=== PATIENT | female | born 1950 | race Caucasian/White ===

== ENCOUNTER 2017-07-16 09:07 | Inpatient (IN) | payer OTHER, MEDICARE ==
[2017-07-16 09:53] LABS: ADD MAN DIFF? NO
[2017-07-16] MEDS ORDERED: ONDANSETRON 4 MG INJ IV ×2 (10:00→13:30)
[2017-07-16] MEDS ORDERED: ACETAMINOPHEN 325 MG TAB PO ×2 (10:00→13:30)
[2017-07-16 10:03] LABS: BASOPHILS % 0.3 % (0.0-2.0); EOSINOPHILS # 0.3 10^3/ul (0.0-0.5); EOSINOPHILS % 3.9 % (0.0-7.0); HEMATOCRIT 34.2 % (37.0-47.0); HEMOGLOBIN 11.1 g/dl (12.0-16.0); LYMPHOCYTES # 0.8 10^3/ul (0.8-2.9); LYMPHOCYTES % 11.8 % (15.0-51.0); MEAN CORPUSCULAR HEMOGLOBIN 28.2 pg (29.0-33.0); MEAN CORPUSCULAR HGB CONC 32.5 g/dl (32.0-37.0); MEAN CORPUSCULAR VOLUME 86.8 fl (82.0-101.0); MEAN PLATELET VOLUME 12.1 fl (7.4-10.4); MONOCYTE # 0.5 10^3/ul (0.3-0.9); MONOCYTES % 8.2 % (0.0-11.0); NEUTROPHILS % 75.2 % (39.0-77.0); PLATELET COUNT 163 10^3/UL (140-415); RED BLOOD COUNT 3.94 10^6/ul (4.20-5.40); RED CELL DISTRIBUTION WIDTH 12.7 % (11.5-14.5)
[2017-07-16 10:03] LABS: WHITE BLOOD COUNT 6.6 10^3/ul (4.8-10.8)
[2017-07-16 10:19] LABS: ANION GAP 18 (8-16); BLOOD UREA NITROGEN 45 mg/dl (7-20); CALCIUM 7.7 mg/dl (8.4-10.2); CARBON DIOXIDE 26 mmol/L (21-31); CHLORIDE 96 mmol/L (97-110); CREATININE 5.66 mg/dl (0.44-1.00); GLUCOSE 179 mg/dl (70-220); POTASSIUM 3.7 mmol/L (3.5-5.1); SODIUM 136 mmol/L (135-144)
[2017-07-16] MEDS: ONDANSETRON 4 MG INJ IV (10:20)
[2017-07-16] MEDS: morphine 4 MG/ML VIAL IV (10:20)
[2017-07-16 10:24] LABS: INR 0.89; PROTIME 12.1 Sec (11.9-14.9); PT RATIO 0.9
[2017-07-16 10:25] LABS: PARTIAL THROMBOPLASTIN TIME 43.4 Sec (25.0-35.0)
[2017-07-16 10:36] LABS: TROPONIN-I < 0.012 ng/ml (0.00-0.12)
[2017-07-16] MEDS: HYDROmorphONE 1 MG/ML SYG IV (12:18)
[2017-07-16] MEDS: FAMOTIDINE 20 MG TAB PO (14:00)
[2017-07-16] MEDS: morphine 2 MG INJ IV (15:49)
[2017-07-16] MEDS: CALCIUM ACETATE 667 MG CAP PO (17:35)
[2017-07-16] MEDS ORDERED: DEXTROSE 50% 50 ML SYRINGE IV ×2 (20:30)
[2017-07-16] MEDS ORDERED: GLUCOSE GEL 15 GRAM TUBE PO ×2 (20:30)
[2017-07-16] MEDS ORDERED: GLUCOSE GEL 15 GRAM TUBE BUCCAL (20:30)
[2017-07-16] MEDS ORDERED: GLUCAGON 1 MG INJ IM (20:30)
[2017-07-16] MEDS: DEXTROSE 5%-0.45% NACL 1,000 ML IV (20:43)
[2017-07-16] MEDS: HEPARIN 5,000 UNIT/0.5 ML VIAL SC (20:52)
[2017-07-16] MEDS: ATORVASTATIN 20 MG TAB PO (21:00)
[2017-07-16] MEDS: INSULIN ASPART [NOVOLOG] 3 ML PEN SC (21:00)
[2017-07-17] MEDS: INSULIN ASPART [NOVOLOG] 3 ML PEN SC ×5 (01:15→17:00)
[2017-07-17] MEDS: LEVOTHYROXINE 100 MCG TAB PO (06:48)
[2017-07-17 07:14] LABS: ADD MAN DIFF? NO
[2017-07-17 07:22] LABS: WHITE BLOOD COUNT 6.2 10^3/ul (4.8-10.8)
[2017-07-17 07:22] LABS: BASOPHILS % 0.6 % (0.0-2.0); EOSINOPHILS # 0.4 10^3/ul (0.0-0.5); EOSINOPHILS % 6.3 % (0.0-7.0); HEMATOCRIT 32.8 % (37.0-47.0); HEMOGLOBIN 10.4 g/dl (12.0-16.0); LYMPHOCYTES # 1.3 10^3/ul (0.8-2.9); LYMPHOCYTES % 20.8 % (15.0-51.0); MEAN CORPUSCULAR HEMOGLOBIN 27.7 pg (29.0-33.0); MEAN CORPUSCULAR HGB CONC 31.7 g/dl (32.0-37.0); MEAN CORPUSCULAR VOLUME 87.2 fl (82.0-101.0); MEAN PLATELET VOLUME 11.7 fl (7.4-10.4); MONOCYTE # 0.8 10^3/ul (0.3-0.9); MONOCYTES % 12.7 % (0.0-11.0); NEUTROPHIL # 3.7 10^3/ul (1.6-7.5); NEUTROPHILS % 59.4 % (39.0-77.0); PLATELET COUNT 179 10^3/UL (140-415); RED BLOOD COUNT 3.76 10^6/ul (4.20-5.40); RED CELL DISTRIBUTION WIDTH 12.8 % (11.5-14.5)
[2017-07-17] MEDS: CALCIUM ACETATE 667 MG CAP PO ×3 (07:35→17:35)
[2017-07-17 07:49] LABS: ALANINE AMINOTRANSFERASE 30 IU/L (13-69); ALBUMIN 3.1 g/dl (3.3-4.9); ALBUMIN/GLOBULIN RATIO 0.96; ALKALINE PHOSPHATASE 111 IU/L (42-121); ANION GAP 21 (8-16); ASPARTATE AMINO TRANSFERASE 25 IU/L (15-46); BLOOD UREA NITROGEN 64 mg/dl (7-20); CALCIUM 7.5 mg/dl (8.4-10.2); CARBON DIOXIDE 22 mmol/L (21-31); CHLORIDE 98 mmol/L (97-110); CREATININE 7.39 mg/dl (0.44-1.00); GLUCOSE 84 mg/dl (70-220); MAGNESIUM 1.9 mg/dl (1.7-2.5); POTASSIUM 4.1 mmol/L (3.5-5.1); SODIUM 137 mmol/L (135-144); TOTAL PROTEIN 6.3 g/dl (6.1-8.1)
[2017-07-17] MEDS: HEPARIN 5,000 UNIT/0.5 ML VIAL SC ×2 (08:38→21:05)
[2017-07-17] MEDS: FAMOTIDINE 20 MG TAB PO (08:39)
[2017-07-17] MEDS: ASPIRIN 81 MG TAB PO (08:39)
[2017-07-17] MEDS: INFLUENZA VIRUS VACCINE 0.5 ML SYG IM* (09:00)
[2017-07-17] MEDS ORDERED: FENTAnyl 50 MCG/ML VIAL (15:32)
[2017-07-17] MEDS ORDERED: LIDOCAINE 1% (MDV) 20 ML INJ ×2 (15:37→15:56)
[2017-07-17] MEDS ORDERED: IODIXANOL LOCM 50 ML BTL ×2 (15:37→15:49)
[2017-07-17] MEDS ORDERED: HEPARIN 1000 UNITS/ML 10 ML INJ (15:37)
[2017-07-17] MEDS ORDERED: HEPARIN 1000 UNITS/NS (A-LINE) 1,000 ML (15:37)
[2017-07-17] MEDS: HYDROCODONE/APAP (5/325) TAB PO (19:39)
[2017-07-17] MEDS: Insulin NOVOLOG SS MILD Algorithm (SS with meals and bedtime) SC (21:00)
[2017-07-17] MEDS ORDERED: INSULIN ASPART [NOVOLOG] 3 ML PEN SC (21:00)
[2017-07-17] MEDS: ATORVASTATIN 20 MG TAB PO (21:04)
[2017-07-18] MEDS ORDERED: ALBUMIN HUMAN 25% 50 ML IV (04:00)
[2017-07-18] MEDS: ALBUMIN HUMAN 25% 100 ML IV (05:21)
[2017-07-18] MEDS: morphine 2 MG INJ IV (06:22)
[2017-07-18] MEDS: LEVOTHYROXINE 100 MCG TAB PO (06:24)
[2017-07-18] MEDS: HEPARIN 1000 UNITS/ML 10 ML INJ CATHETER (06:26)
[2017-07-18] MEDS: Insulin NOVOLOG SS MILD Algorithm (SS with meals and bedtime) SC ×4 (07:30→20:23)
[2017-07-18 07:42] LABS: HEPATITIS B SURFACE ANTIGEN NEGATIVE (NEGATIVE)
[2017-07-18] MEDS: ASPIRIN 81 MG TAB PO (08:09)
[2017-07-18] MEDS: CALCIUM ACETATE 667 MG CAP PO ×3 (08:09→17:38)
[2017-07-18] MEDS: FAMOTIDINE 20 MG TAB PO (08:09)
[2017-07-18] MEDS: HEPARIN 5,000 UNIT/0.5 ML VIAL SC ×2 (08:10→20:20)
[2017-07-18] MEDS: HYDROCODONE/APAP (5/325) TAB PO (08:18)
[2017-07-18] MEDS: DOCUSATE SODIUM 100 MG CAP PO (16:32)
[2017-07-18] MEDS: VERAPAMIL (SR) 120 MG TAB PO (16:33)
[2017-07-18 17:39] LABS: FREE T4 (FREE THYROXINE) 1.09 ng/dl (0.78-2.44)
[2017-07-18] MEDS: ATORVASTATIN 20 MG TAB PO (20:17)
[2017-07-19] MEDS: HYDROCODONE/APAP (5/325) TAB PO (02:53)
[2017-07-20] MEDS ORDERED: INFLUENZA VIRUS VACCINE 0.5 ML SYG IM* (19:00)
== END 2017-07-19 06:30 | disposition left against medical advice (07) | DRG 252 ==
LOC: E/R 09:07 → PP2 10:02
PROC: [UNRECOGNIZED PROCEDURE] (principal; 2017-07-17 14:50)
PROC: 02HV33Z Insertion of Infusion Device into Superior Vena Cava, Percutaneous Approach (ICD-10-PCS; 2017-07-17 14:50)
PROC: B548ZZA Ultrasonography of Superior Vena Cava, Guidance (ICD-10-PCS; 2017-07-17 14:50)
PROC: 0JH63XZ Insertion of Tunneled Vascular Access Device into Chest Subcutaneous Tissue and Fascia, Percutaneous Approach (ICD-10-PCS; 2017-07-17 14:50)
PROC: 5A1D70Z Performance of Urinary Filtration, Intermittent, Less than 6 Hours Per Day (ICD-10-PCS; 2017-07-17 14:50)
DX: T82.41XA Breakdown (mechanical) of vascular dialysis catheter, initial encounter (principal); N18.6 End stage renal disease; E11.22 Type 2 diabetes mellitus with diabetic chronic kidney disease; I12.0 Hypertensive chronic kidney disease with stage 5 chronic kidney disease or end stage renal disease; I87.1 Compression of vein; S42.211A Unspecified displaced fracture of surgical neck of right humerus, initial encounter for closed fracture; S42.251A Displaced fracture of greater tuberosity of right humerus, initial encounter for closed fracture; Y71.8 Miscellaneous cardiovascular devices associated with adverse incidents, not elsewhere classified; E87.79 Other fluid overload; E03.9 Hypothyroidism, unspecified; W19.XXXA Unspecified fall, initial encounter; Y92.009 Unspecified place in unspecified non-institutional (private) residence as the place of occurrence of the external cause; I70.208 Unspecified atherosclerosis of native arteries of extremities, other extremity; E11.51 Type 2 diabetes mellitus with diabetic peripheral angiopathy without gangrene; R94.31 Abnormal electrocardiogram [ECG] [EKG]; D64.9 Anemia, unspecified
CPT/HCPCS: 36907; 37248; 37249; 71045; 73030-RT; 73060-RT; 73070; 73200; 80048; 80053; 82962; 83735; 84439; 84443; 84484; 85025; 85610; 85730; 87340; 90935; 93005; 93306; 93923; 93970; 96374; 96375; 96376; 99217; 99285-25; G0378

== ENCOUNTER 2017-08-31 19:05 | Emergency (ER) | payer OTHER ==
[2017-08-31] MEDS: ONDANSETRON 4 MG INJ IV (22:46)
[2017-08-31] MEDS: HYDROmorphONE 0.5 MG/0.5 ML SYG IV (22:47)
[2017-08-31] MEDS: SOD CHLORIDE 0.9% 1,000 ML IV (22:48)
[2017-08-31 23:16] LABS: ADD MAN DIFF? NO
[2017-08-31 23:22] LABS: BASOPHILS % 0.4 % (0.0-2.0); EOSINOPHILS # 0.3 10^3/ul (0.0-0.5); EOSINOPHILS % 4.1 % (0.0-7.0); HEMATOCRIT 35.3 % (37.0-47.0); HEMOGLOBIN 11.4 g/dl (12.0-16.0); LYMPHOCYTES # 1.3 10^3/ul (0.8-2.9); LYMPHOCYTES % 17.9 % (15.0-51.0); MEAN CORPUSCULAR HEMOGLOBIN 28.3 pg (29.0-33.0); MEAN CORPUSCULAR HGB CONC 32.3 g/dl (32.0-37.0); MEAN CORPUSCULAR VOLUME 87.6 fl (82.0-101.0); MEAN PLATELET VOLUME 9.6 fl (7.4-10.4); MONOCYTE # 0.4 10^3/ul (0.3-0.9); MONOCYTES % 4.9 % (0.0-11.0); NEUTROPHIL # 5.4 10^3/ul (1.6-7.5); NEUTROPHILS % 72.3 % (39.0-77.0); PLATELET COUNT 267 10^3/UL (140-415); RED BLOOD COUNT 4.03 10^6/ul (4.20-5.40)
[2017-08-31 23:22] LABS: WHITE BLOOD COUNT 7.5 10^3/ul (4.8-10.8)
[2017-08-31 23:41] LABS: ALANINE AMINOTRANSFERASE 27 IU/L (13-69); ALBUMIN 3.5 g/dl (3.3-4.9); ALBUMIN/GLOBULIN RATIO 1.02; ALKALINE PHOSPHATASE 162 IU/L (42-121); ANION GAP 17 (8-16); ASPARTATE AMINO TRANSFERASE 22 IU/L (15-46); BILIRUBIN,INDIRECT 0.2 mg/dl (0-1.1); BILIRUBIN,TOTAL 0.2 mg/dl (0.2-1.3); BLOOD UREA NITROGEN 30 mg/dl (7-20); CALCIUM 8.9 mg/dl (8.4-10.2); CARBON DIOXIDE 25 mmol/L (21-31); CHLORIDE 92 mmol/L (97-110); CREATININE 5.31 mg/dl (0.44-1.00); GLUCOSE 96 mg/dl (70-220); LIPASE 54 U/L (23-300); POTASSIUM 3.9 mmol/L (3.5-5.1); SODIUM 130 mmol/L (135-144); TOTAL PROTEIN 6.9 g/dl (6.1-8.1)
== END 2017-09-01 02:19 | disposition home or self-care (01) ==
LOC: E/R 09-01 02:19
DX: K80.20 Calculus of gallbladder without cholecystitis without obstruction (principal); I10 Essential (primary) hypertension; E11.9 Type 2 diabetes mellitus without complications; Z79.82 Long term (current) use of aspirin
CPT/HCPCS: 36415; 76705; 80053; 83690; 85025; 96374; 96375; 99285-25

== ENCOUNTER 2018-12-04 04:35 | Inpatient (IN) | payer OTHER ==
[2018-12-04 04:50] LABS: ADD MAN DIFF? NO
[2018-12-04 04:55] LABS: WHITE BLOOD COUNT 5.6 10^3/ul (4.8-10.8)
[2018-12-04 04:55] LABS: BASOPHILS % 0.5 % (0.0-2.0); EOSINOPHILS # 0.3 10^3/ul (0.0-0.5); EOSINOPHILS % 4.5 % (0.0-7.0); HEMATOCRIT 36.6 % (37.0-47.0); HEMOGLOBIN 12.2 g/dl (12.0-16.0); LYMPHOCYTES # 1.2 10^3/ul (0.8-2.9); LYMPHOCYTES % 21.4 % (15.0-51.0); MEAN CORPUSCULAR HEMOGLOBIN 30.5 pg (29.0-33.0); MEAN CORPUSCULAR HGB CONC 33.3 g/dl (32.0-37.0); MEAN CORPUSCULAR VOLUME 91.5 fl (82.0-101.0); MEAN PLATELET VOLUME 12.3 fl (7.4-10.4); MONOCYTE # 0.3 10^3/ul (0.3-0.9); MONOCYTES % 6.1 % (0.0-11.0); NEUTROPHIL # 3.7 10^3/ul (1.6-7.5); NEUTROPHILS % 67.3 % (39.0-77.0); PLATELET COUNT 134 10^3/UL (140-415); RED CELL DISTRIBUTION WIDTH 15.2 % (11.5-14.5)
[2018-12-04] MEDS: ASPIRIN 81 MG TAB PO ×2 (04:56→13:38)
[2018-12-04 05:14] LABS: ANION GAP 12 (5-13); BLOOD UREA NITROGEN 47 mg/dl (7-20); CALCIUM 7.7 mg/dl (8.4-10.2); CARBON DIOXIDE 25 mmol/L (21-31); CHLORIDE 88 mmol/L (97-110); GLUCOSE 98 mg/dl (70-220); SODIUM 125 mmol/L (135-144)
[2018-12-04 05:20] LABS: Estimated GFR 5 mL/min (>60)
[2018-12-04 05:22] LABS: CREATININE 8.24 mg/dl (0.44-1.00); POTASSIUM 5.5 mmol/L (3.5-5.1)
[2018-12-04 05:25] LABS: TROPONIN-I 0.027 ng/ml (0.000-0.120)
[2018-12-04] MEDS: ALBUTEROL 0.083% (NEB) 2.5 MG/3 ML AMP HHN (05:33)
[2018-12-04] MEDS: NA POLYST SULFON 15 GM/60 ML BTL PO (05:57)
[2018-12-04] MEDS ORDERED: SODIUM CHLORIDE 0.9% 1L BAG IV (08:00)
[2018-12-04] MEDS ORDERED: ALBUMIN HUMAN 25% 100 ML IV (08:00)
[2018-12-04] MEDS ORDERED: HYDROCODONE/APAP (10/325) TAB PO (10:00)
[2018-12-04 10:41] LABS: CHOLESTEROL 93 mg/dl (100-200)
[2018-12-04 10:41] LABS: CHOL/HDL RATIO 2.9 RATIO; HDL CHOLESTEROL 32 mg/dl (33-92); LDL CHOLESTEROL,CALCULATED 42 mg/dl; TRIGLYCERIDES 93 mg/dl (0-149)
[2018-12-04 10:43] LABS: CREATINE KINASE 185 IU/L (23-200)
[2018-12-04 10:55] LABS: CK INDEX 1.6; CK-MB 3.04 ng/ml (0.0-2.4); TROPONIN-I 0.017 ng/ml (0.000-0.120)
[2018-12-04 11:13] LABS: HEPATITIS B SURFACE ANTIGEN NEGATIVE (NEGATIVE)
[2018-12-04] MEDS ORDERED: PENTOXIFYLLINE (SR) 400 MG TAB PO (13:00)
[2018-12-04] MEDS: INSULIN ASPART [NOVOLOG] 3 ML PEN SC ×3 (13:20→21:00)
[2018-12-04] MEDS: hydrOXYzine HCL 10 MG TAB PO ×2 (13:31→21:21)
[2018-12-04] MEDS: CALCIUM ACETATE 667 MG CAP PO ×2 (13:31→17:20)
[2018-12-04] MEDS: FUROSEMIDE 20 MG TAB PO (13:32)
[2018-12-04] MEDS: DICYCLOMINE 10 MG CAP PO ×2 (13:38→22:56)
[2018-12-04] MEDS: VERAPAMIL (SR) 120 MG TAB PO (13:39)
[2018-12-04] MEDS: PENTOXIFYLLINE (SR) 400 MG TAB PO (13:39)
[2018-12-04] MEDS: LORATADINE 10 MG TAB PO (13:39)
[2018-12-04] MEDS ORDERED: NITROGLYCERIN (SL) 0.4 MG TAB SL (14:00)
[2018-12-04] MEDS: hydrALAzine 20 MG INJ IV (14:55)
[2018-12-04 15:12] LABS: MAGNESIUM 2.2 mg/dl (1.7-2.5)
[2018-12-04 16:47] LABS: CREATINE KINASE 174 IU/L (23-200)
[2018-12-04 16:59] LABS: CK INDEX 1.7; CK-MB 2.96 ng/ml (0.0-2.4); TROPONIN-I < 0.012 ng/ml (0.000-0.120)
[2018-12-04] MEDS: ATORVASTATIN 20 MG TAB PO (21:21)
[2018-12-04] MEDS: ONDANSETRON 4 MG INJ IV (22:56)
[2018-12-05] MEDS: ACCU-CHEK XX (02:00)
[2018-12-05 06:03] LABS: ADD MAN DIFF? NO
[2018-12-05 06:11] LABS: WHITE BLOOD COUNT 4.6 10^3/ul (4.8-10.8)
[2018-12-05 06:11] LABS: BASOPHILS % 0.6 % (0.0-2.0); EOSINOPHILS # 0.1 10^3/ul (0.0-0.5); HEMATOCRIT 33.7 % (37.0-47.0); LYMPHOCYTES # 0.9 10^3/ul (0.8-2.9); LYMPHOCYTES % 20.3 % (15.0-51.0); MEAN CORPUSCULAR HEMOGLOBIN 30.5 pg (29.0-33.0); MEAN CORPUSCULAR HGB CONC 32.6 g/dl (32.0-37.0); MEAN CORPUSCULAR VOLUME 93.4 fl (82.0-101.0); MEAN PLATELET VOLUME 11.6 fl (7.4-10.4); MONOCYTE # 0.3 10^3/ul (0.3-0.9); MONOCYTES % 7.3 % (0.0-11.0); NEUTROPHIL # 3.2 10^3/ul (1.6-7.5); NEUTROPHILS % 68.6 % (39.0-77.0); PLATELET COUNT 120 10^3/UL (140-415); RED BLOOD COUNT 3.61 10^6/ul (4.20-5.40); RED CELL DISTRIBUTION WIDTH 15.3 % (11.5-14.5)
[2018-12-05] MEDS: FUROSEMIDE 20 MG TAB PO (06:18)
[2018-12-05 06:46] LABS: HEMOGLOBIN A1C 5.7 % (0-5.9)
[2018-12-05 07:12] LABS: ANION GAP 11 (5-13); BLOOD UREA NITROGEN 25 mg/dl (7-20); CALCIUM 7.6 mg/dl (8.4-10.2); CARBON DIOXIDE 28 mmol/L (21-31); CHLORIDE 95 mmol/L (97-110); CREATININE 6.15 mg/dl (0.44-1.00); Estimated GFR 7 mL/min (>60); GLUCOSE 75 mg/dl (70-220); POTASSIUM 3.1 mmol/L (3.5-5.1); SODIUM 134 mmol/L (135-144)
[2018-12-05 07:16] LABS: FREE T4 (FREE THYROXINE) 1.37 ng/dl (0.78-2.44)
[2018-12-05] MEDS: CALCIUM ACETATE 667 MG CAP PO ×3 (07:42→17:41)
[2018-12-05] MEDS: INSULIN ASPART [NOVOLOG] 3 ML PEN SC ×4 (07:43→21:00)
[2018-12-05] MEDS: POTASSIUM CHLORIDE (SR) 20 MEQ TAB PO ×2 (09:50→15:17)
[2018-12-05] MEDS: REGADENOSON 0.4 MG/5 ML SYG (12:30)
[2018-12-05] MEDS: hydrOXYzine HCL 10 MG TAB PO ×2 (13:00→15:16)
[2018-12-05] MEDS: PENTOXIFYLLINE (SR) 400 MG TAB PO (15:15)
[2018-12-05] MEDS: LEVOTHYROXINE 100 MCG TAB PO (15:15)
[2018-12-05] MEDS: VERAPAMIL (SR) 120 MG TAB PO (15:15)
[2018-12-05] MEDS: ASPIRIN 81 MG TAB PO (15:16)
[2018-12-05] MEDS: DICYCLOMINE 10 MG CAP PO (15:16)
[2018-12-05] MEDS: LORATADINE 10 MG TAB PO (15:17)
[2018-12-05] MEDS ORDERED: GLUCOSE GEL 15 GRAM TUBE PO ×2 (19:00)
[2018-12-05] MEDS ORDERED: GLUCAGON 1 MG INJ IM (19:00)
[2018-12-05] MEDS ORDERED: GLUCOSE GEL 15 GRAM TUBE BUCCAL (19:00)
[2018-12-05] MEDS ORDERED: DEXTROSE 50% 50 ML SYRINGE IV ×2 (19:00)
[2018-12-06] MEDS: ATORVASTATIN 20 MG TAB PO ×2 (00:04→20:18)
[2018-12-06] MEDS: hydrOXYzine HCL 10 MG TAB PO ×4 (00:04→20:18)
[2018-12-06] MEDS: DICYCLOMINE 10 MG CAP PO ×3 (00:04→20:18)
[2018-12-06] MEDS: ACCU-CHEK XX (01:57)
[2018-12-06] MEDS: FUROSEMIDE 20 MG TAB PO (06:09)
[2018-12-06] MEDS: LEVOTHYROXINE 100 MCG TAB PO (06:09)
[2018-12-06 06:23] LABS: ADD MAN DIFF? NO
[2018-12-06 06:38] LABS: WHITE BLOOD COUNT 5.2 10^3/ul (4.8-10.8)
[2018-12-06 06:38] LABS: BASOPHILS % 0.8 % (0.0-2.0); EOSINOPHILS # 0.2 10^3/ul (0.0-0.5); EOSINOPHILS % 4.6 % (0.0-7.0); HEMATOCRIT 37.1 % (37.0-47.0); HEMOGLOBIN 11.7 g/dl (12.0-16.0); LYMPHOCYTES % 19.7 % (15.0-51.0); MEAN CORPUSCULAR HEMOGLOBIN 30.2 pg (29.0-33.0); MEAN CORPUSCULAR HGB CONC 31.5 g/dl (32.0-37.0); MEAN CORPUSCULAR VOLUME 95.9 fl (82.0-101.0); MEAN PLATELET VOLUME 11.1 fl (7.4-10.4); MONOCYTE # 0.4 10^3/ul (0.3-0.9); MONOCYTES % 7.7 % (0.0-11.0); NEUTROPHIL # 3.5 10^3/ul (1.6-7.5); PLATELET COUNT 125 10^3/UL (140-415); RED BLOOD COUNT 3.87 10^6/ul (4.20-5.40); RED CELL DISTRIBUTION WIDTH 15.8 % (11.5-14.5)
[2018-12-06 06:55] LABS: ANION GAP 9 (5-13); BLOOD UREA NITROGEN 13 mg/dl (7-20); CALCIUM 7.8 mg/dl (8.4-10.2); CARBON DIOXIDE 30 mmol/L (21-31); CHLORIDE 99 mmol/L (97-110); CREATININE 4.44 mg/dl (0.44-1.00); Estimated GFR 10 mL/min (>60); GLUCOSE 75 mg/dl (70-220); POTASSIUM 3.8 mmol/L (3.5-5.1); SODIUM 138 mmol/L (135-144)
[2018-12-06] MEDS: CALCIUM ACETATE 667 MG CAP PO ×3 (07:55→17:42)
[2018-12-06] MEDS: INSULIN ASPART [NOVOLOG] 3 ML PEN SC ×4 (07:55→20:19)
[2018-12-06] MEDS: LORATADINE 10 MG TAB PO (08:55)
[2018-12-06] MEDS: ASPIRIN 81 MG TAB PO (08:55)
[2018-12-06] MEDS: VERAPAMIL (SR) 120 MG TAB PO (08:56)
[2018-12-06] MEDS: PENTOXIFYLLINE (SR) 400 MG TAB PO (08:56)
[2018-12-07] MEDS: ACCU-CHEK XX (02:00)
[2018-12-07] MEDS: LEVOTHYROXINE 100 MCG TAB PO (05:51)
[2018-12-07] MEDS: FUROSEMIDE 20 MG TAB PO (05:52)
[2018-12-07] MEDS: INSULIN ASPART [NOVOLOG] 3 ML PEN SC ×4 (07:55→20:58)
[2018-12-07] MEDS: VERAPAMIL (SR) 120 MG TAB PO (08:53)
[2018-12-07] MEDS: ASPIRIN 81 MG TAB PO (08:53)
[2018-12-07] MEDS: DICYCLOMINE 10 MG CAP PO ×2 (08:54→20:50)
[2018-12-07] MEDS: PENTOXIFYLLINE (SR) 400 MG TAB PO (08:54)
[2018-12-07] MEDS: LORATADINE 10 MG TAB PO (08:54)
[2018-12-07] MEDS: hydrOXYzine HCL 10 MG TAB PO ×3 (08:54→20:50)
[2018-12-07] MEDS: CALCIUM ACETATE 667 MG CAP PO ×3 (08:55→18:49)
[2018-12-07] MEDS: ATORVASTATIN 20 MG TAB PO (20:50)
[2018-12-08] MEDS: ACCU-CHEK XX (02:00)
[2018-12-08] MEDS: LEVOTHYROXINE 100 MCG TAB PO (06:15)
[2018-12-08] MEDS: FUROSEMIDE 20 MG TAB PO (06:16)
[2018-12-08] MEDS: INSULIN ASPART [NOVOLOG] 3 ML PEN SC ×2 (07:55→11:50)
[2018-12-08] MEDS: PENTOXIFYLLINE (SR) 400 MG TAB PO (08:52)
[2018-12-08] MEDS: hydrOXYzine HCL 10 MG TAB PO ×2 (08:52→12:18)
[2018-12-08] MEDS: LORATADINE 10 MG TAB PO (08:52)
[2018-12-08] MEDS: ASPIRIN 81 MG TAB PO (08:52)
[2018-12-08] MEDS: DICYCLOMINE 10 MG CAP PO (08:52)
[2018-12-08] MEDS: CALCIUM ACETATE 667 MG CAP PO ×2 (08:52→12:18)
[2018-12-08] MEDS: VERAPAMIL (SR) 120 MG TAB PO (08:53)
== END 2018-12-08 16:52 | disposition home or self-care (01) | DRG 313 ==
LOC: E/R 04:35 → TEL 05:44
PROC: 5A1D70Z Performance of Urinary Filtration, Intermittent, Less than 6 Hours Per Day (ICD-10-PCS; principal; 2018-12-04)
DX: R07.9 Chest pain, unspecified (principal); N18.6 End stage renal disease; I12.0 Hypertensive chronic kidney disease with stage 5 chronic kidney disease or end stage renal disease; E87.1 Hypo-osmolality and hyponatremia; E87.70 Fluid overload, unspecified; E87.5 Hyperkalemia; D69.6 Thrombocytopenia, unspecified; E11.22 Type 2 diabetes mellitus with diabetic chronic kidney disease; Z99.2 Dependence on renal dialysis; I16.0 Hypertensive urgency; E03.9 Hypothyroidism, unspecified; I49.3 Ventricular premature depolarization
CPT/HCPCS: 36415; 71045; 78452; 80048; 80061; 82550; 82553; 82962; 83036; 83735; 84439; 84443; 84484; 85025; 87340; 90935; 93005; 93017; 93306; 94664; 99285-25

== ENCOUNTER 2018-12-11 12:02 | Emergency (ER) | payer OTHER ==
[2018-12-11 13:15] LABS: ADD MAN DIFF? NO
[2018-12-11 13:21] LABS: WHITE BLOOD COUNT 5.7 10^3/ul (4.8-10.8)
[2018-12-11 13:22] LABS: BASOPHILS % 0.5 % (0.0-2.0); EOSINOPHILS # 0.3 10^3/ul (0.0-0.5); EOSINOPHILS % 5.8 % (0.0-7.0); HEMATOCRIT 39.4 % (37.0-47.0); HEMOGLOBIN 12.5 g/dl (12.0-16.0); LYMPHOCYTES # 0.8 10^3/ul (0.8-2.9); MEAN CORPUSCULAR HEMOGLOBIN 30.3 pg (29.0-33.0); MEAN CORPUSCULAR HGB CONC 31.7 g/dl (32.0-37.0); MEAN CORPUSCULAR VOLUME 95.4 fl (82.0-101.0); MEAN PLATELET VOLUME 10.9 fl (7.4-10.4); MONOCYTE # 0.5 10^3/ul (0.3-0.9); NEUTROPHILS % 71.3 % (39.0-77.0); PLATELET COUNT 144 10^3/UL (140-415); RED BLOOD COUNT 4.13 10^6/ul (4.20-5.40); RED CELL DISTRIBUTION WIDTH 14.7 % (11.5-14.5)
[2018-12-11 13:36] LABS: LACTIC ACID 1.4 mmol/L (0.5-2.0)
[2018-12-11 13:38] LABS: ALANINE AMINOTRANSFERASE 22 IU/L (13-69); ALBUMIN 3.6 g/dl (3.3-4.9); ALBUMIN/GLOBULIN RATIO 1.12; ALKALINE PHOSPHATASE 89 IU/L (42-121); ANION GAP 9 (5-13); BILIRUBIN,INDIRECT 0.8 mg/dl (0-1.1); BILIRUBIN,TOTAL 0.8 mg/dl (0.2-1.3); BLOOD UREA NITROGEN 13 mg/dl (7-20); CALCIUM 8.4 mg/dl (8.4-10.2); CARBON DIOXIDE 33 mmol/L (21-31); CHLORIDE 97 mmol/L (97-110); CREATININE 3.34 mg/dl (0.44-1.00); Estimated GFR 14 mL/min (>60); LIPASE 112 U/L (23-300); POTASSIUM 3.7 mmol/L (3.5-5.1); SODIUM 139 mmol/L (135-144); TOTAL PROTEIN 6.8 g/dl (6.1-8.1)
[2018-12-11 13:39] LABS: INR 1.11; PROTIME 14.4 Sec (11.9-14.9); PT RATIO 1.1
[2018-12-11 13:40] LABS: PARTIAL THROMBOPLASTIN TIME 32.6 Sec (23.0-35.0)
[2018-12-11 13:45] LABS: ASPARTATE AMINO TRANSFERASE 25 IU/L (15-46); GLUCOSE 142 mg/dl (70-220)
[2018-12-11 13:49] LABS: TROPONIN-I < 0.012 ng/ml (0.000-0.120)
[2018-12-11] MEDS: ACETAMINOPHEN 500 MG TAB PO (14:20)
[2018-12-11 18:02] LABS: ADD UMIC YES; UR ASCORBIC ACID NEGATIVE (NEGATIVE); UR BACTERIA FEW /HPF (NONE SEEN); UR BILIRUBIN (Dip) NEGATIVE (NEGATIVE); UR BLOOD (Dip) NEGATIVE (NEGATIVE); UR CLARITY CLEAR (CLEAR); UR COLOR AMBER (YELLOW); UR GLUCOSE (Dip) 3+ mg/dL (NEGATIVE); UR KETONES (Dip) NEGATIVE (NEGATIVE); UR LEUKOCYTE ESTERASE (Dip) NEGATIVE Leu/ul (NEGATIVE); UR NITRITE (Dip) NEGATIVE (NEGATIVE); UR RBC 3 /HPF (0-5); UR TOTAL PROTEIN (Dip) 3+ mg/dl (NEGATIVE); UR UROBILINOGEN (Dip) NEGATIVE (NEGATIVE); UR WBC 5 /HPF (0-5)
== END 2018-12-11 19:02 | disposition home or self-care (01) ==
LOC: E/R 12:02
DX: R25.1 Tremor, unspecified (principal); I12.0 Hypertensive chronic kidney disease with stage 5 chronic kidney disease or end stage renal disease; N18.6 End stage renal disease; R40.2142 Coma scale, eyes open, spontaneous, at arrival to emergency department; R40.2352 Coma scale, best motor response, localizes pain, at arrival to emergency department; R40.2362 Coma scale, best motor response, obeys commands, at arrival to emergency department; Z99.2 Dependence on renal dialysis
CPT/HCPCS: 36415; 71045; 80053; 81001; 83605; 83690; 84484; 85025; 85610; 85730; 93005; 99285-25

== ENCOUNTER 2018-12-28 03:29 | Inpatient (IN) | payer OTHER ==
[2018-12-28] MEDS: ONDANSETRON 4 MG INJ IV (03:33)
[2018-12-28] MEDS: morphine 4 MG/ML VIAL IV ×2 (03:33→07:30)
[2018-12-28 03:47] LABS: ADD MAN DIFF? NO
[2018-12-28] MEDS: NITROGLYCERIN 2% 1 GM OINT PKT TD (03:48)
[2018-12-28 04:09] LABS: ANION GAP 12 (5-13); BLOOD UREA NITROGEN 75 mg/dl (7-20); CALCIUM 8.8 mg/dl (8.4-10.2); CARBON DIOXIDE 26 mmol/L (21-31); CHLORIDE 98 mmol/L (97-110); CREATININE 7.13 mg/dl (0.44-1.00); Estimated GFR 6 mL/min (>60); GLUCOSE 98 mg/dl (70-220); POTASSIUM 4.5 mmol/L (3.5-5.1); SODIUM 136 mmol/L (135-144)
[2018-12-28 04:20] LABS: TROPONIN-I 0.016 ng/ml (0.000-0.120)
[2018-12-28 04:39] LABS: BASOPHILS % 0.5 % (0.0-2.0); EOSINOPHILS # 0.3 10^3/ul (0.0-0.5); EOSINOPHILS % 6.1 % (0.0-7.0); HEMATOCRIT 35.8 % (37.0-47.0); HEMOGLOBIN 11.4 g/dl (12.0-16.0); LYMPHOCYTES % 17.8 % (15.0-51.0); MEAN CORPUSCULAR HEMOGLOBIN 30.3 pg (29.0-33.0); MEAN CORPUSCULAR HGB CONC 31.8 g/dl (32.0-37.0); MEAN CORPUSCULAR VOLUME 95.2 fl (82.0-101.0); MEAN PLATELET VOLUME 11.6 fl (7.4-10.4); MONOCYTE # 0.4 10^3/ul (0.3-0.9); MONOCYTES % 6.7 % (0.0-11.0); NEUTROPHIL # 3.8 10^3/ul (1.6-7.5); NEUTROPHILS % 68.7 % (39.0-77.0); PLATELET COUNT 129 10^3/UL (140-415); RED BLOOD COUNT 3.76 10^6/ul (4.20-5.40); RED CELL DISTRIBUTION WIDTH 13.8 % (11.5-14.5)
[2018-12-28 04:39] LABS: WHITE BLOOD COUNT 5.6 10^3/ul (4.8-10.8)
[2018-12-28] MEDS ORDERED: ACETAMINOPHEN 325 MG TAB PO (05:30)
[2018-12-28] MEDS ORDERED: ONDANSETRON 4 MG INJ IV ×3 (05:30→11:30)
[2018-12-28 06:33] LABS: INR 1.05; PROTIME 13.8 Sec (11.9-14.9); PT RATIO 1.1
[2018-12-28 06:34] LABS: PARTIAL THROMBOPLASTIN TIME 35.4 Sec (23.0-35.0)
[2018-12-28 10:29] LABS: CREATINE KINASE 124 IU/L (23-200)
[2018-12-28 10:37] LABS: CK INDEX 1.9; CK-MB 2.32 ng/ml (0.0-2.4); TROPONIN-I 0.017 ng/ml (0.000-0.120)
[2018-12-28] MEDS ORDERED: NITROGLYCERIN (SL) 0.4 MG TAB SL (11:30)
[2018-12-28] MEDS: ASPIRIN 325 MG TAB PO (12:13)
[2018-12-28] MEDS: METOPROLOL 25 MG TAB PO (12:15)
[2018-12-28 14:04] LABS: TROPONIN-I < 0.012 ng/ml (0.000-0.120)
[2018-12-28] MEDS ORDERED: SODIUM CHLORIDE 0.9% 1L BAG IV (15:30)
[2018-12-28] MEDS ORDERED: ALBUMIN HUMAN 25% 100 ML IV (15:30)
[2018-12-28 16:11] LABS: CREATINE KINASE 71 IU/L (23-200)
[2018-12-28 16:25] LABS: CK-MB 1.41 ng/ml (0.0-2.4); TROPONIN-I < 0.012 ng/ml (0.000-0.120)
[2018-12-28 16:45] LABS: HEPATITIS B SURFACE ANTIGEN NEGATIVE (NEGATIVE)
[2018-12-28] MEDS: SUCRALFATE 1 GM TAB PO (17:43)
[2018-12-28] MEDS: morphine 2 MG INJ IV (17:49)
[2018-12-28 18:59] LABS: TROPONIN-I < 0.012 ng/ml (0.000-0.120)
[2018-12-29] MEDS: METOPROLOL 25 MG TAB PO ×3 (01:50→23:08)
[2018-12-29] MEDS: SUCRALFATE 1 GM TAB PO ×5 (01:51→23:08)
[2018-12-29 02:04] LABS: TROPONIN-I < 0.012 ng/ml (0.000-0.120)
[2018-12-29 06:12] LABS: ADD MAN DIFF? NO
[2018-12-29 06:21] LABS: WHITE BLOOD COUNT 4.1 10^3/ul (4.8-10.8)
[2018-12-29 06:21] LABS: EOSINOPHILS # 0.3 10^3/ul (0.0-0.5); EOSINOPHILS % 6.6 % (0.0-7.0); HEMATOCRIT 33.8 % (37.0-47.0); HEMOGLOBIN 10.8 g/dl (12.0-16.0); LYMPHOCYTES # 0.9 10^3/ul (0.8-2.9); LYMPHOCYTES % 21.2 % (15.0-51.0); MEAN CORPUSCULAR HEMOGLOBIN 30.7 pg (29.0-33.0); MEAN PLATELET VOLUME 11.5 fl (7.4-10.4); MONOCYTE # 0.3 10^3/ul (0.3-0.9); MONOCYTES % 7.8 % (0.0-11.0); NEUTROPHIL # 2.6 10^3/ul (1.6-7.5); NEUTROPHILS % 63.2 % (39.0-77.0); PLATELET COUNT 117 10^3/UL (140-415); RED BLOOD COUNT 3.52 10^6/ul (4.20-5.40)
[2018-12-29] MEDS: LEVOTHYROXINE 50 MCG TAB PO (06:29)
[2018-12-29 06:57] LABS: ANION GAP 8 (5-13); BLOOD UREA NITROGEN 36 mg/dl (7-20); CALCIUM 8.4 mg/dl (8.4-10.2); CARBON DIOXIDE 29 mmol/L (21-31); CHLORIDE 98 mmol/L (97-110); CREATININE 4.59 mg/dl (0.44-1.00); Estimated GFR 9 mL/min (>60); GLUCOSE 74 mg/dl (70-220); POTASSIUM 3.9 mmol/L (3.5-5.1); SODIUM 135 mmol/L (135-144)
[2018-12-29] MEDS: ASPIRIN 325 MG TAB PO (08:49)
[2018-12-29] MEDS: FUROSEMIDE 40 MG TAB PO (08:49)
[2018-12-29] MEDS: morphine 2 MG INJ IV (18:33)
[2018-12-29] MEDS: BARIUM SULF 2% 450 ML BTL (BERRY SMOOTHIE) PO (20:00)
[2018-12-30] MEDS: LEVOTHYROXINE 50 MCG TAB PO (06:55)
[2018-12-30] MEDS: SUCRALFATE 1 GM TAB PO ×4 (06:55→22:40)
[2018-12-30] MEDS: METOPROLOL 25 MG TAB PO ×3 (09:00→22:40)
[2018-12-30] MEDS: ASPIRIN 325 MG TAB PO (14:37)
[2018-12-30] MEDS: FUROSEMIDE 40 MG TAB PO (14:38)
[2018-12-31] MEDS: PANTOPRAZOLE (EC) 40 MG TAB PO (06:33)
[2018-12-31] MEDS: LEVOTHYROXINE 50 MCG TAB PO (06:33)
[2018-12-31] MEDS: SUCRALFATE 1 GM TAB PO ×4 (06:33→21:11)
[2018-12-31 06:47] LABS: ADD MAN DIFF? NO
[2018-12-31 07:00] LABS: BASOPHILS % 0.9 % (0.0-2.0); EOSINOPHILS # 0.3 10^3/ul (0.0-0.5); EOSINOPHILS % 7.6 % (0.0-7.0); HEMATOCRIT 34.3 % (37.0-47.0); LYMPHOCYTES % 21.2 % (15.0-51.0); MEAN CORPUSCULAR HEMOGLOBIN 30.6 pg (29.0-33.0); MEAN CORPUSCULAR HGB CONC 32.1 g/dl (32.0-37.0); MEAN CORPUSCULAR VOLUME 95.3 fl (82.0-101.0); MEAN PLATELET VOLUME 12.1 fl (7.4-10.4); MONOCYTE # 0.5 10^3/ul (0.3-0.9); MONOCYTES % 10.7 % (0.0-11.0); NEUTROPHIL # 2.7 10^3/ul (1.6-7.5); NEUTROPHILS % 59.4 % (39.0-77.0); PLATELET COUNT 128 10^3/UL (140-415); RED CELL DISTRIBUTION WIDTH 13.7 % (11.5-14.5)
[2018-12-31 07:00] LABS: WHITE BLOOD COUNT 4.5 10^3/ul (4.8-10.8)
[2018-12-31 07:13] LABS: ANION GAP 9 (5-13); BLOOD UREA NITROGEN 24 mg/dl (7-20); CALCIUM 8.3 mg/dl (8.4-10.2); CARBON DIOXIDE 29 mmol/L (21-31); CHLORIDE 96 mmol/L (97-110); CREATININE 4.64 mg/dl (0.44-1.00); Estimated GFR 9 mL/min (>60); GLUCOSE 76 mg/dl (70-220); POTASSIUM 3.9 mmol/L (3.5-5.1); SODIUM 134 mmol/L (135-144)
[2018-12-31] MEDS: ASPIRIN 325 MG TAB PO (09:46)
[2018-12-31] MEDS: FUROSEMIDE 40 MG TAB PO (09:50)
[2018-12-31] MEDS: METOPROLOL 25 MG TAB PO ×2 (09:51→21:12)
[2018-12-31] MEDS: BENAZEPRIL 20 MG TAB PO (21:11)
[2019-01-01] MEDS: LEVOTHYROXINE 50 MCG TAB PO (06:18)
[2019-01-01] MEDS: SUCRALFATE 1 GM TAB PO ×4 (06:18→21:32)
[2019-01-01] MEDS: PANTOPRAZOLE (EC) 40 MG TAB PO (06:18)
[2019-01-01 06:45] LABS: ADD MAN DIFF? NO
[2019-01-01 06:58] LABS: WHITE BLOOD COUNT 4.8 10^3/ul (4.8-10.8)
[2019-01-01 06:58] LABS: BASOPHILS % 0.8 % (0.0-2.0); EOSINOPHILS # 0.3 10^3/ul (0.0-0.5); HEMATOCRIT 34.1 % (37.0-47.0); HEMOGLOBIN 10.8 g/dl (12.0-16.0); LYMPHOCYTES # 1.1 10^3/ul (0.8-2.9); LYMPHOCYTES % 22.2 % (15.0-51.0); MEAN CORPUSCULAR HEMOGLOBIN 30.2 pg (29.0-33.0); MEAN CORPUSCULAR HGB CONC 31.7 g/dl (32.0-37.0); MEAN CORPUSCULAR VOLUME 95.3 fl (82.0-101.0); MEAN PLATELET VOLUME 11.8 fl (7.4-10.4); MONOCYTE # 0.4 10^3/ul (0.3-0.9); MONOCYTES % 9.1 % (0.0-11.0); NEUTROPHILS % 61.5 % (39.0-77.0); PLATELET COUNT 124 10^3/UL (140-415); RED BLOOD COUNT 3.58 10^6/ul (4.20-5.40); RED CELL DISTRIBUTION WIDTH 13.7 % (11.5-14.5)
[2019-01-01 06:59] LABS: POSITIVE DIFF @See below
[2019-01-01 07:10] LABS: ANION GAP 9 (5-13); BLOOD UREA NITROGEN 33 mg/dl (7-20); CARBON DIOXIDE 28 mmol/L (21-31); CHLORIDE 94 mmol/L (97-110); CREATININE 6.16 mg/dl (0.44-1.00); Estimated GFR 7 mL/min (>60); GLUCOSE 86 mg/dl (70-220); POTASSIUM 4.3 mmol/L (3.5-5.1); SODIUM 131 mmol/L (135-144)
[2019-01-01] MEDS: ASPIRIN 325 MG TAB PO (09:16)
[2019-01-01] MEDS: BENAZEPRIL 20 MG TAB PO ×2 (09:17→21:33)
[2019-01-01] MEDS: METOPROLOL 25 MG TAB PO ×2 (09:17→21:33)
[2019-01-01] MEDS: FUROSEMIDE 40 MG TAB PO (09:17)
[2019-01-02] MEDS: PANTOPRAZOLE (EC) 40 MG TAB PO (06:07)
[2019-01-02 07:25] LABS: ANION GAP 9 (5-13); BLOOD UREA NITROGEN 21 mg/dl (7-20); CALCIUM 8.3 mg/dl (8.4-10.2); CARBON DIOXIDE 29 mmol/L (21-31); CHLORIDE 97 mmol/L (97-110); CREATININE 4.39 mg/dl (0.44-1.00); Estimated GFR 10 mL/min (>60); GLUCOSE 83 mg/dl (70-220); POTASSIUM 3.9 mmol/L (3.5-5.1); SODIUM 135 mmol/L (135-144)
[2019-01-02] MEDS: SUCRALFATE 1 GM TAB PO ×4 (08:46→20:46)
[2019-01-02] MEDS: BENAZEPRIL 20 MG TAB PO ×2 (08:47→20:47)
[2019-01-02] MEDS: ASPIRIN 325 MG TAB PO (08:47)
[2019-01-02] MEDS: LEVOTHYROXINE 50 MCG TAB PO (08:47)
[2019-01-02] MEDS: FUROSEMIDE 40 MG TAB PO (08:48)
[2019-01-02] MEDS: METOPROLOL 25 MG TAB PO ×2 (08:48→20:48)
[2019-01-02] MEDS: NIFEdipine (XL) 30 MG TAB PO ×2 (12:24→20:46)
[2019-01-03 07:07] LABS: ANION GAP 9 (5-13); BLOOD UREA NITROGEN 31 mg/dl (7-20); CALCIUM 8.1 mg/dl (8.4-10.2); CARBON DIOXIDE 28 mmol/L (21-31); CHLORIDE 96 mmol/L (97-110); CREATININE 5.58 mg/dl (0.44-1.00); Estimated GFR 8 mL/min (>60); GLUCOSE 77 mg/dl (70-220); SODIUM 133 mmol/L (135-144)
[2019-01-03] MEDS: BENAZEPRIL 20 MG TAB PO (09:10)
[2019-01-03] MEDS: SUCRALFATE 1 GM TAB PO ×3 (09:10→17:32)
[2019-01-03] MEDS: METOPROLOL 25 MG TAB PO (09:10)
[2019-01-03] MEDS: LEVOTHYROXINE 50 MCG TAB PO (09:11)
[2019-01-03] MEDS: NIFEdipine (XL) 30 MG TAB PO (09:11)
[2019-01-03] MEDS: PANTOPRAZOLE (EC) 40 MG TAB PO (09:11)
[2019-01-03] MEDS: ASPIRIN 325 MG TAB PO (09:11)
[2019-01-03] MEDS: FUROSEMIDE 40 MG TAB PO (09:11)
== END 2019-01-03 18:27 | disposition home or self-care (01) | DRG 291 ==
LOC: E/R 03:29 → 6WM 05:14
PROC: 5A1D70Z Performance of Urinary Filtration, Intermittent, Less than 6 Hours Per Day (ICD-10-PCS; principal; 2018-12-30)
DX: I13.2 Hypertensive heart and chronic kidney disease with heart failure and with stage 5 chronic kidney disease, or end stage renal disease (principal); N18.6 End stage renal disease; I50.33 Acute on chronic diastolic (congestive) heart failure; E11.22 Type 2 diabetes mellitus with diabetic chronic kidney disease; E03.9 Hypothyroidism, unspecified; D63.1 Anemia in chronic kidney disease; E78.5 Hyperlipidemia, unspecified; I25.10 Atherosclerotic heart disease of native coronary artery without angina pectoris; R00.1 Bradycardia, unspecified; Z99.2 Dependence on renal dialysis; Z90.49 Acquired absence of other specified parts of digestive tract
CPT/HCPCS: 36415; 71045; 74176; 80048; 82550; 82553; 82962; 84484; 85025; 85610; 85730; 87340; 90935; 93005; 96374; 96375; 99217; 99285-25; G0378